=== PATIENT | female | born 1955 | race Two or more races ===

== ENCOUNTER 2019-04-12 16:24 | Emergency (ER) | payer MEDICAID, MEDICARE, OTHER ==
[~2019-04-12] VITALS: Ht 157.5 cm; Wt 90.7 kg
[~2019-04-12 16:24] MED LIST: AMLO5TAB15 PO; ASPI-231 PO; CHOL400C7 PO; CIPR-173 PO; GLYB5TAB8 PO; HYOS0.1220 PO; LISI-646 PO; LOVA20TA4 PO; METF-372 PO; METO-158 PO; OMEG100062 PO; SITA100T7 PO; [UNRECOGNIZED DRUG - CODE] PO
[2019-04-12 22:15] VITALS: BP 146/62
[2019-04-13] MEDS ORDERED: HYDROcodone-ACET 5/325MG TAB PO ONE (00:30)
[2019-04-13] MEDS ORDERED: IBUPROFEN 600 MG TAB PO ONE (00:30)
== END 2019-04-13 00:45 | disposition home or self-care (01) ==
LOC: EDBD 16:24 → ER 16:24
DX: S52.522A Torus fracture of lower end of left radius, initial encounter for closed fracture (principal); S00.03XA Contusion of scalp, initial encounter; E11.9 Type 2 diabetes mellitus without complications; E78.5 Hyperlipidemia, unspecified; I10 Essential (primary) hypertension; Z79.82 Long term (current) use of aspirin; Z79.899 Other long term (current) drug therapy; Z86.73 Personal history of transient ischemic attack (TIA), and cerebral infarction without residual deficits; V00.831A Fall from motorized mobility scooter, initial encounter; Y93.89 Activity, other specified; Y99.8 Other external cause status; Y92.89 Other specified places as the place of occurrence of the external cause
CPT/HCPCS: 29125; 70450; 71250; 73070; 73130